=== PATIENT | male | born 1975 | race Caucasian/White ===

== ENCOUNTER 2020-12-27 18:42 | Emergency (ER) | payer SELFPAY ==
[~2020-12-27] VITALS: Ht 167.6 cm; Wt 79.0 kg
[2020-12-27] MEDS ORDERED: IBUPROFEN 400MG TABLET PO ONE (19:15)
[2020-12-27 19:28] LABS: HEMATOCRIT. 31.9 % (42.0-52.0); HEMOGLOBIN. 10.6 g/dL (14.0-18.0); MEAN CORPUSCULAR HEMOGLOBIN 28.4 pg (28.0-32.0); MEAN CORPUSCULAR VOLUME 85.6 fL (80.0-94.0); MEAN PLATELET VOLUME 7.2 fl (7.4-10.4); PLATELET 88 x1000/uL (130-400); RED BLOOD CELL COUNT 3.73 mill/uL (4.7-6.1); RED CELL DISTRIBUTION WIDTH 19.2 % (11.6-14.6)
[2020-12-27 19:35] LABS: CHLORIDE 107 mEq/L (98-107)
[2020-12-27 19:51] LABS: PLATELET ESTIMATE DECREASED
[2020-12-27] MEDS ORDERED: IBUP-2028 MT (20:46)
[2020-12-27] MEDS ORDERED: CEPH500C2 MT (20:46)
[2020-12-28 02:00] VITALS: BP 115/70
== END 2020-12-28 04:22 | disposition home or self-care (01) ==
LOC: ER 18:42
DX: L84 Corns and callosities (principal); D69.6 Thrombocytopenia, unspecified; F17.200 Nicotine dependence, unspecified, uncomplicated
CPT/HCPCS: 36415; 73630; 80053; 85025; 99284

== ENCOUNTER 2020-12-30 11:39 | Emergency (ER) | payer MEDICAID ==
[~2020-12-30] VITALS: Ht 167.6 cm; Wt 70.0 kg
[~2020-12-30 11:39] MED LIST: CEPH500C2 MT; IBUP-2028 MT
[2020-12-30] MEDS ORDERED: FOLIC ACID 1 MG, THIAMINE HCL 100 MG, MVI, ADULT NO.1 10 ML in DEXTROSE 5% WATER 1,000 ML IV ONE (12:00)
[2020-12-30 12:33] LABS: HEMATOCRIT. 32.7 % (42.0-52.0); MEAN CORPUSCULAR HEMOGLOBIN 28.4 pg (28.0-32.0); MEAN CORPUSCULAR VOLUME 84.7 fL (80.0-94.0); MEAN PLATELET VOLUME 7.8 fl (7.4-10.4); PLATELET 73 x1000/uL (130-400); RED BLOOD CELL COUNT 3.87 mill/uL (4.7-6.1); RED CELL DISTRIBUTION WIDTH 19.2 % (11.6-14.6)
[2020-12-30 12:40] LABS: CHLORIDE 112 mEq/L (98-107)
[2020-12-30 12:53] LABS: ETHANOL BLOOD 489 mg/dL
[2020-12-30 13:13] LABS: PLATELET ESTIMATE DECREASED
[2020-12-30] MEDS ORDERED: CHLORDIAZEPOXIDE 25MG CAPSULE PO ONE (19:45)
[2020-12-30 20:42] VITALS: BP 110/61
== END 2020-12-30 20:42 | disposition home or self-care (01) ==
LOC: ER 11:39
DX: S90.32XA Contusion of left foot, initial encounter (principal); M79.671 Pain in right foot; F10.129 Alcohol abuse with intoxication, unspecified; Z79.899 Other long term (current) drug therapy; X58.XXXA Exposure to other specified factors, initial encounter; Y93.89 Activity, other specified; Y92.89 Other specified places as the place of occurrence of the external cause; Y99.8 Other external cause status; Y90.8 Blood alcohol level of 240 mg/100 ml or more
CPT/HCPCS: 36415; 73630; 80048; 80307; 80320; 80329; 85025; 96365; 99285; J3411; J3490; J7070; G0480

== ENCOUNTER 2021-01-01 16:44 | Emergency (ER) | payer MEDICAID ==
[~2021-01-01] VITALS: Ht 165.1 cm; Wt 75.0 kg
[2021-01-01 16:49] VITALS: BP 118/72
[2021-01-01] MEDS ORDERED: SODIUM CHLORIDE 0.9% 1,000 ML IV ONE (18:15)
[2021-01-01 19:05] LABS: BASOPHILS % 2.9 % (0.0-2.0); EOSINOPHILS % 2.7 % (0.0-5.0); HEMATOCRIT. 31.8 % (42.0-52.0); HEMOGLOBIN. 10.6 g/dL (14.0-18.0); LYMPHOCYTES % 36.6 % (20.0-50.0); MEAN CORPUSCULAR HEMOGLOBIN 28.1 pg (28.0-32.0); MEAN CORPUSCULAR VOLUME 84.5 fL (80.0-94.0); MEAN PLATELET VOLUME 8.1 fl (7.4-10.4); MONOCYTES % 6.3 % (2.0-8.0); NEUTROPHILS % 51.5 % (40.0-76.0); PLATELET 55 x1000/uL (130-400); RED BLOOD CELL COUNT 3.77 mill/uL (4.7-6.1); RED CELL DISTRIBUTION WIDTH 19.1 % (11.6-14.6)
[2021-01-01 19:12] LABS: CHLORIDE 114 mEq/L (98-107)
[2021-01-01] MEDS ORDERED: POTASSIUM CHLORIDE 20MEQ TABLET SR PO ONE (19:30)
[2021-01-01 19:33] LABS: ETHANOL BLOOD 417 mg/dL
== END 2021-01-02 04:58 | disposition home or self-care (01) ==
LOC: ER 16:44
DX: L84 Corns and callosities (principal); F10.129 Alcohol abuse with intoxication, unspecified; Y90.8 Blood alcohol level of 240 mg/100 ml or more
CPT/HCPCS: 36415; 80048; 80320; 85025; 96360; 96361; 99283; J7030; G0480